=== PATIENT | male | born 1980 | race Caucasian/White ===

== ENCOUNTER → 2018-10-08 | Outpatient (CLI) | payer OTHER ==
--- NOTE | 2018-10-08 16:11 | RAD ---
EXAM: AP, oblique and lateral views right foot DATE: 10/08/2018 12:00 AM INDICATION: Right foot pain COMPARISON: No Prior FINDINGS: No evidence of acute fracture or dislocation. Joint spaces are preserved without significant degenerative/proliferative change. Mild forefoot soft tissue swelling is seen. Tendon anchors are seen within the lateral malleolus. IMPRESSION: No evidence of acute fracture or dislocation. Electronically signed by: Alberto Benito MD (10/08/2018 4:07 PM) [facility]
== END | disposition home or self-care (01) ==
LOC: DXRAD 12:07
PROVIDERS: ATTEND Orthopaedic Surgery Sports Medicine
DX: M79.89 Other specified soft tissue disorders (principal)
CPT/HCPCS: 73630